=== PATIENT | female | born 1960 | race Caucasian/White ===

== ENCOUNTER 2018-10-20 07:09 | Day surgery (SDC) | payer OTHER ==
[~2018-10-20] VITALS: Ht 160 cm; Wt 77.0 kg
[2018-10-20 07:56] VITALS: Ht 160 cm; Wt 77.0 kg
[2018-10-20] MEDS ORDERED: LOSARTAN PO (08:14)
[2018-10-20 08:27] VITALS: BP 144/74; PULSE 74; RESP 20
[2018-10-20] MEDS ORDERED: MIDAZOLAM 1 MG/ML 2 ML INJ ONE ×2 (09:22)
[2018-10-20] MEDS ORDERED: FENTAnyl 50 MCG/ML VIAL ONE (09:22)
[2018-10-20 09:40] VITALS: BP 112/67; PULSE 76; RESP 18
== END 2018-10-20 10:55 | disposition home or self-care (01) ==
LOC: GIL 07:09
PROVIDERS: ATTEND Internal Medicine Gastroenterology
DX: Z12.11 Encounter for screening for malignant neoplasm of colon (principal); K64.8 Other hemorrhoids
CPT/HCPCS: 45378; 88305; J2250; J3010; Z7610